=== PATIENT | female | born 1970 | race Hispanic/Latino ===

== ENCOUNTER 2018-01-28 08:09 | Day surgery (SDC) | payer BC ==
[2018-01-28 09:26] VITALS: O2SAT 100
[2018-01-28] MEDS: Lidocaine/Epinephrine 1% 1:100000 10 ML IJ ONE ×2 (11:46→11:55)
[2018-01-28] MEDS: Bupivacaine 0.25% 20 ML INJ IJ ONE ×2 (11:46→11:55)
[2018-01-28 12:23] VITALS: TEMP 97.7
--- NOTE | 2018-01-28 12:28 | PCM.SURG1 ---
Surgeon's Initial Post Op Note - Surgeon's Notes Surgeon: Tesfaye Dyer MD Rn Maternity: KEYSHA Villatoro Type of Anesthesia: Moderate Sedation{RN} Pre-Operative Diagnosis: Sebaceous cyst of right wrist 1x1 cm Operative Findings: Sebaceous cyst of right wrist 1x1 cm Post-Operative Diagnosis: Sebaceous cyst of right wrist 1x1 cm Operation Performed: Excision of Sebaceous cyst of right wrist 1x1 cm Specimen/Specimens Removed: Sebaceous cyst of right wrist Estimated Blood Loss: EBL {In ML}: 5 Blood Products Given: N/A Drains Used: No Drains Post-Op Condition: Good Date of Surgery/Procedure: 01/28/18 Time of Surgery/Procedure: 12:28
[2018-01-28 12:36] VITALS: BP 105/61; PULSE 69; RESP 18
--- NOTE | 2018-01-31 07:07 | OP ---
Copied To: Corky Dyer MD Attending MD: Corky Dyer MD PROCEDURE DATE: 01/28/2018 PREOPERATIVE DIAGNOSIS: Sebaceous cyst of the right wrist. POSTOPERATIVE DIAGNOSIS: Sebaceous cyst of the right wrist. PROCEDURES DONE: 1. Excision of sebaceous cyst of the right wrist, approximately 1 x 1 cm size. 2. Layered closure of the wound, 1 x 1 cm size. ANESTHESIA: Local anesthesia. ESTIMATED BLOOD LOSS: Around 5 mL. DRAINS: None. PATHOLOGY: Sebaceous cyst was sent to pathology. COMPLICATIONS: None. INTRAOPERATIVE FINDINGS: The patient had sebaceous cyst of the right wrist dorsum. DESCRIPTION OF PROCEDURE: On intraoperative steps, this is a 47-year-old female who was diagnosed with sebaceous cyst of the right wrist, and the patient was consented for the excision of the cyst, brought to the OR, placed supine on the operating table. After prepping the right wrist, local anesthesia was injected. Elliptical incision was made. Sebaceous cyst was completely excised. The wound was subcutaneous and the fascia deep. First, the deep layer was sutured with 3-0 Vicryl and skin with 4-0 Monocryl and dry sterile dressing was applied. The patient tolerated the procedure well. Count of instrument and gauze was correct. There was no apparent complication. The patient was sent to the Postanesthesia Care Unit in stable condition. Corky Dyer MD
== END 2018-01-28 12:36 | disposition home or self-care (01) ==
LOC: C.SDS 08:09
PROVIDERS: ATTEND Surgery Surgical Critical Care
DX: L72.3 Sebaceous cyst (principal); L72.0 Epidermal cyst